=== PATIENT | male | born 1950 | race Caucasian/White ===

== ENCOUNTER 2025-08-20 11:06 | Emergency (ER) | payer OTHER ==
[~2025-08-20] VITALS: Ht 180.3 cm; Wt 78.0 kg
[2025-08-20 13:44] LABS: BASOPHILS 0.9 % (0.2-1.2); EOSINOPHILS 2.2 % (0.8-7.0); LYMPHOCYTES 29.4 % (21.8-53.1); MCH 30.7 PG (25.7-32.2); MCHC 33.7 g/dL (32.3-36.5); MCV 91.3 fL (79.0-92.2); MONOCYTES 9.1 % (5.3-12.2); NEUTROPHILS 57.8 % (34.0-67.9); RBC 4.46 M/uL (4.63-6.08)
[2025-08-20 14:01] LABS: ALT (SGPT) 14.0 U/L (14-59); AST (SGOT) 11.0 U/L (15-37); GLOMERULAR FILTRATION RATE,EST 69.0 mL/min (>60); PROTEIN, TOTAL 6.8 g/dL (6.4-8.2); UREA NITROGEN 9.0 mg/dL (7-18)
[2025-08-20 16:16] VITALS: BP 144/85
== END 2025-08-20 16:16 | disposition home or self-care (01) ==
LOC: ED 11:06
PROVIDERS: Emergency Medicine
DX: K08.89 Other specified disorders of teeth and supporting structures (principal); Z88.8 Allergy status to other drugs, medicaments and biological substances
CPT/HCPCS: 36415; 70491; 80053; 85025; 99283-25; Q9967

== ENCOUNTER 2025-09-02 09:29 | Emergency (ER) | payer OTHER ==
[~2025-09-02] VITALS: Ht 180.3 cm; Wt 72.0 kg
--- OUTSIDE RECORDS SUMMARY | 2025-09-02 09:30 | XMS ---
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 Amy VISIT COUNT (12 MO.) 2 [facility] TOTAL 2 NOTE: Visits indicate total known visits. ED/C VISIT TRACKING (12 MO.) 09/02/2025 09:29 [facility] [place] TYPE: Emergency COMPLAINT: - BACK PAIN 08/20/2025 11:08 [facility] [place] TYPE: Emergency COMPLAINT: - SORE THROAT DIAGNOSES: - Acute pharyngitis, unspecified - Allergy status to other drugs, medicaments and biological substances - Other specified disorders of teeth and supporting structures INPATIENT VISIT TRACKING (12 MO.) No inpatient visits to display in this time frame [id number]
[2025-09-02] MEDS ORDERED: ACETAMINOPHEN 500 MG TAB PO ONE (09:45)
[2025-09-02] MEDS ORDERED: KETOROLAC TROMETHAMINE 15 MG/ML VIAL IM ONE (09:45)
[2025-09-02] MEDS ORDERED: LIDOCAINE HCL 4% 1 EACH PATCH TD ONE (09:45)
[2025-09-02] MEDS ORDERED: PREDNISONE10 MG PO (09:53)
[2025-09-02] MEDS ORDERED: HYDROCODON-ACE1 EAC8 PO (10:27)
[2025-09-02 11:01] VITALS: BP 159/117
[2025-09-02] MEDS ORDERED: LIDOCAINE PATCH REMOVAL 1 EA TD SCH (21:00)
== END 2025-09-02 11:01 | disposition home or self-care (01) ==
LOC: ED 09:29
DX: S32.049A Unspecified fracture of fourth lumbar vertebra, initial encounter for closed fracture (principal); W19.XXXA Unspecified fall, initial encounter; Z88.5 Allergy status to narcotic agent; Z79.52 Long term (current) use of systemic steroids
CPT/HCPCS: 72100; 96372; 99283; A9270; J1885